=== PATIENT | female | born 1975 | race Caucasian/White ===

== ENCOUNTER 2024-03-16 19:46 | Emergency (ER) | payer MEDICARE, MEDICAID, SELFPAY ==
[2024-03-16] VITALS (8 sets, daily range): BP systolic 159–187; BP diastolic 79–101; PULSE 63–79; RESP 18; TEMP 36.5; O2SAT 92–98; BMI 24.9
--- NOTE | 2024-03-16 20:43 | ED_ITS ---
Discharge Plan Disposition Patient Disposition: Home, Self-Care Prescriptions Prescriptions: New promethazine 25 mg tablet 25 mg PO Q6H PRN (Reason: nausea and vomiting) Qty: 20 0RF levofloxacin 750 mg tablet 750 mg PO DAILY 7 Days Qty: 7 0RF Referrals Follow up/Referrals: Provider,Referral, MD [Referring] - See instructions Activity Restrictions/Add. Instructions Additional Instructions/Restrictions: Please take antibiotics as prescribed for treatment of UTI. Please take Phenergan as needed for nausea and vomiting. Please follow-up with your primary care provider. Please return to the emergency department if you develop any new or worsening symptoms or become concerned for your health. Clinical Impressions Clinical Impression: UTI (urinary tract infection) Qualifiers: Urinary tract infection type: acute pyelonephritis Qualified Code(s): N10 - Acute pyelonephritis Instructions Patient Instructions: DI for Acute Abdominal Pain Print Language Print Language: Monegasque Discharge ED Provider: Dimitri Sims Adult HPI <KHLOE Cain - Last Filed: 03/16/24 22:18> General Chief complaint: Abdominal Pain Stated complaint: abdominal pain Time Seen by Provider: 03/16/24 20:38 Mode of Arrival: EMS Source of Information: Patient Limitations: No Limitations Description of Symptoms (Recalled from ER Triage Doc. by RN): pt reports abdomen pain that is focused in the right lower quad since wednesday. pt reports he has been nauseated and vommiting since then as well. pt denies any fever. History of Present Illness HPI narrative: 48-year-old female presents emergency department via EMS with a lower abdominal pain nausea vomiting and diarrhea with poor p.o. intake since Wednesday. He denies any fever chest pain cough shortness of breath chills, denies any urinary type symptomatology or vaginal type symptomatology to include hematuria hematochezia melena hematemesis or vaginal bleeding. Patient is a current everyday tobacco user, denies any alcohol or drug use, patient is currently undergoing antibiotic therapy with doxycycline for ongoing right diabetic foot infection that is being followed by wound care as outpatient, has been going on some November 2023. The past medical history consistent with type 2 diabetes, hypertension, hyperlipidemia. She has had prior cholecystectomy and laparoscopic procedures performed for ovarian cyst. Initial triage vitals are unremarkable. Onset (ago): day(s) Related Data Previous Rx's ?Medication ?Instructions ?Recorded levofloxacin 750 mg tablet 750 mg PO DAILY 7 days #7 tabs 03/17/24 promethazine 25 mg tablet 25 mg PO Q6H PRN nausea and 03/17/24 vomiting #20 tabs Allergies Allergy/AdvReac Type Severity Reaction Status Date / Time Cephalosporins Allergy Intermediate Hives Verified 03/16/24 21:03 ibuprofen Allergy Intermediate Hives Verified 03/16/24 21:03 lidocaine Allergy Intermediate Rash Verified 03/16/24 21:03 Penicillins Allergy Intermediate Hives Verified 03/16/24 21:03 [facility] <KHLOE Cain - Last Filed: 03/16/24 22:18> [facility] Disclaimer: The information contained in this section may have been updated after the patient was seen, as this information can be updated by other users. Social History (Updated 03/16/24 @ 22:18 by KHLOE Cain) Smoking Status: Current every day smoker alcohol intake: never current occupational status: other Travel in the last 8 weeks: None Have you lived/traveled outside [place] in past 30 days?: No Contact w/someone who lives/traveled outside US past 30 days?: No Exposure to someone with infectious disease in past 14 days?: No Do you have a fever (greater than 100.4 F or 38 C)?: No Have you tested positive for COVID-19: No Exposed to someone with COVID-19 in past 14 days?: No Do you have a sore throat?: No Do you have a cough?: No Do you have any weakness?: No Do you have any diarrhea?: No Are you experiencing any unusual bleeding?: No Do you have any muscle aches/pain?: No Do you have any abdominal pain?: Yes Are you experiencing loss of taste or smell?: Yes <KHLOE Cain - Last Filed: 03/16/24 22:18> ROS Obtained: Yes All systems reviewed & no additional complaints except as documented Physical Exam <KHLOE Cain - Last Filed: 03/16/24 22:18> General General appearance: alert and in no apparent distress Head Head exam: atraumatic and normocephalic Eye Eye exam: Present PERRL and EOMI ENT ENT exam: Present mucous membranes moist Neck Neck exam: Present normal inspection Chest Chest inspection: Present normal inspection and symmetric chest wall rise Respiratory Respiratory exam: Present normal lung sounds bilaterally; Absent respiratory distress, wheezes, stridor or accessory muscle use Cardiovascular Cardiovascular exam: Present regular rate and normal rhythm Abdominal Exam Abdominal exam: Present soft and tenderness Abdominal tenderness: Present RLQ, LLQ and mild Comment: Lower quadrant abdominal tenderness to palpation, there is no guarding, no rebound tenderness palpation Extremities Exam Extremities exam: Present normal inspection and other (Patient has bandaged right foot with prior amputated extremity) Neurological Exam Neurological exam: Present alert and oriented X3 Psychiatric Psychiatric exam: Present normal affect Skin Skin exam: Present warm and dry Medical Decision Making <KHLOE Cani - Last Filed: 03/16/24 22:18> Medical Records Medical records reviewed: Yes I reviewed the patient's medical records. Screening: Per USPSTF and CDC recommendations, given the prevalence of disease in our region, it is our hospital?s policy to screen for HIV and viral Hepatitis for all patients aged 18 and over and those with ongoing risk factors. Festus Inquiry Pt receiving controlled substance: No Festus was queried for this patient: No Vital Signs: 03/16/24 19:46 03/16/24 20:01 Temperature 97.7 F Temperature Source Oral Pulse Rate 70 Pulse Rate [Right] 79 Respiratory Rate 18 Blood Pressure 170/79 H Blood Pressure [Right Arm] 159/101 H Blood Pressure Mean 127 Blood Pressure Mean [Right Arm] 120 02 Sat by Pulse Oximetry 98 97 Oxygen Delivery Method Room Air Lab Data Lab results reviewed: Yes I reviewed the patient's lab results. Lab Results 03/16/24 20:00: WBC 14.4 H, RBC 5.45 H, Hgb 14.6, Hct 43.7, MCV 80.2 L, MCH 26.8 L, MCHC 33.4, RDW 15.0, Plt Count 337, MPV 9.3, Neut % (Auto) 82.0 H, Lymph % (Auto) 13.6, [place] % (Auto) 3.5, Eos % (Auto) 0.1, Baso % (Auto) 0.4, Neut # (Auto) 11.8 H, Lymph # (Auto) 2.0, [place] # (Auto) 0.5, Eos # (Auto) 0.0, Baso # (Auto) 0.1, Sodium 133 L, Potassium 4.1, Chloride 97 L, Carbon Dioxide 30, Anion Gap 10.1, BUN 41 H, Creatinine 0.90, Estimated Creat Clear 92, Estimated GFR 67, Est GFR ( Amer) 82, Glucose 296 H, Lactate 2.4 H, Calcium 9.6, Total Bilirubin 0.8, AST 44 H, ALT 27, Alkaline Phosphatase 91, Total Protein 8.1, Albumin 4.7, Globulin 3.4 H, Albumin/Globulin Ratio 1.4, Lipase 24 03/16/24 20:56: Urine HCG, Qual Negative, Urine Opiates Screen Negative, Urine Methadone Screen Negative, Ur Barbituates Screen Negative, Ur Phencyclidine Scrn Negative, Ur Amphetamines Screen Negative, U Benzodiazepines Scrn Negative, Urine Cocaine Screen Negative, U Marijuana (THC) Screen Positive H 03/16/24 20:57: Urine Color Yellow, Urine Appearance Clear, Urine pH 7.0, Ur Specific [place] 1.020, Urine Protein 2+ A, Urine Glucose (UA) Trace, Urine Ketones 1+, Urine Blood Negative, Urine Nitrate Positive A, Urine Bilirubin 1+ A , Urine Urobilinogen 0.2, Ur Leukocyte Esterase Negative, Urine RBC None, Urine WBC 10-20, Ur Squamous Epith Cells 20-50, Calcium Oxalate Crystal 1+, Urine Bacteria 2+, Hyaline Casts 3-5 03/16/24 20:00 03/16/24 20:00 Orders (Tests/Meds): ED MEDICATIONS Generic Name Dose Route Start Last Admin Trade Name Freq PRN Reason Stop Dose Admin Levofloxacin/Dextrose 750 mg in 150 mls @ 100 mls/hr 03/17/24 00:30 Levofloxacin 750mg/150ml Premix IV 03/27/24 00:29 Q24H [facility] Levofloxacin 750 mg 03/17/24 00:54 Levofloxacin 750 Mg Tablet PO 03/17/24 00:55 ONCE ONE Promethazine HCl 25 mg 03/17/24 00:54 Promethazine 25mg Tablet PO 03/17/24 00:55 ONCE ONE Discontinued Medications Generic Name Dose Route Start Last Admin Trade Name Freq PRN Reason Stop Dose Admin Iopamidol 75 ml 03/16/24 22:38 03/16/24 22:39 Iopamidol-370 (76%);100ml Bottle IV 03/16/24 22:39 75 ml ONCE ONE Administration Morphine Sulfate 2 mg 03/16/24 20:46 03/16/24 21:16 Morphine 4mg/Ml Syringe IV 03/16/24 20:47 2 mg ONCE ONE Administration Ondansetron HCl 4 mg 03/16/24 20:46 03/16/24 21:17 Ondansetron 4mg/2ml Vial IV 03/16/24 20:47 4 mg ONCE ONE Administration Promethazine HCl 25 mg 03/17/24 00:22 03/17/24 00:58 Promethazine Hcl 25mg/Ml 1ml Vial IV 03/17/24 00:23 Not Given ONCE ONE Sodium Chloride 10 ml 03/16/24 22:38 03/16/24 22:39 Sodium Chloride 0.9% 10ml Syr (Rad Only) IV 03/16/24 22:39 10 ml ONCE ONE Administration Sodium Chloride 25 ml 03/17/24 00:22 03/17/24 00:26 Sodium Chloride 0.9% 25ml Bag IV 03/17/24 00:23 25 ml ONCE ONE Administration ORDERS Category Date Time Status CT abdomen pelvis w con Stat Cat Scan 03/16/24 20:43 Completed XR chest portable Stat Exams 03/16/24 20:45 Completed Complete Blood Count Auto Diff Stat Lab 03/16/24 20:00 Completed Comprehensive Metabolic Panel Stat Lab 03/16/24 20:00 Completed Drug Screen,Urine Stat Lab 03/16/24 20:56 Completed Lactic Acid Follow Up (RFLX 1) Stat Lab 03/17/24 00:50 Ordered Lactic Acid Stat Lab 03/16/24 20:00 Completed Lipase Stat Lab 03/16/24 20:00 Completed Urinalysis and Microscopic Stat Lab 03/16/24 20:57 Completed Urine , HCG Qual. Stat Lab 03/16/24 20:56 Completed Urine Culture Stat Micro 03/16/24 20:57 Received Medical Decision Narrative: 48-year-old female presents to the emergency department with abdominal pain nausea vomiting diarrhea for several days, differential diagnosis could but limited to colitis ileitis, gastritis, GERD, electrolyte disturbance, pancreatitis, cholecystitis, cholelithiasis, choledocholithiasis, UTI, ureterolithiasis, nephrolithiasis, gastroenteritis. Obtain basic laboratory studies lipase lactate chest x-ray, urine hCG, CT abdomen pelvis with contrast, will give 4 mg IV Zofran and 2 mg IV morphine for pain, urinalysis chest x-ray. CBC is notable for mild leukocytosis of 14.4, hemoconcentrated and decreased MCV at 80.2 which I do think is chronic/and corresponding with the patient's ongoing tobacco abuse. CMP is notable for minimal hyponatremia at 133, BUN is elevated at 41 lipase within normal limits, AST is minimally elevated at 44. UDS is positive for marijuana, otherwise negative. urine hCG is negative I discussed with patient case with the attending physician Dr. Sims at shift change she will be assuming admitted patient care/workup, pending urinalysis, laboratory studies and imaging studies. <Dimitri Sims MD - Last Filed: 03/17/24 01:03> Vital Signs: 03/16/24 19:46 03/16/24 20:01 Temperature 97.7 F Temperature Source Oral Pulse Rate 70 Pulse Rate [Right] 79 Respiratory Rate 18 Blood Pressure 170/79 H Blood Pressure [Right Arm] 159/101 H Blood Pressure Mean 127 Blood Pressure Mean [Right Arm] 120 02 Sat by Pulse Oximetry 98 97 Oxygen Delivery Method Room Air Lab Data Lab Results 03/16/24 20:00: WBC 14.4 H, RBC 5.45 H, Hgb 14.6, Hct 43.7, MCV 80.2 L, MCH 26.8 L, MCHC 33.4, RDW 15.0, Plt Count 337, MPV 9.3, Neut % (Auto) 82.0 H, Lymph % (Auto) 13.6, [place] % (Auto) 3.5, Eos % (Auto) 0.1, Baso % (Auto) 0.4, Neut # (Auto) 11.8 H, Lymph # (Auto) 2.0, [place] # (Auto) 0.5, Eos # (Auto) 0.0, Baso # (Auto) 0.1, Sodium 133 L, Potassium 4.1, Chloride 97 L, Carbon Dioxide 30, Anion Gap 10.1, BUN 41 H, Creatinine 0.90, Estimated Creat Clear 92, Estimated GFR 67, Est GFR ( Amer) 82, Glucose 296 H, Lactate 2.4 H, Calcium 9.6, Total Bilirubin 0.8, AST 44 H, ALT 27, Alkaline Phosphatase 91, Total Protein 8.1, Albumin 4.7, Globulin 3.4 H, Albumin/Globulin Ratio 1.4, Lipase 24 03/16/24 20:56: Urine HCG, Qual Negative, Urine Opiates Screen Negative, Urine Methadone Screen Negative, Ur Barbituates Screen Negative, Ur Phencyclidine Scrn Negative, Ur Amphetamines Screen Negative, U Benzodiazepines Scrn Negative, Urine Cocaine Screen Negative, U Marijuana (THC) Screen Positive H 03/16/24 20:57: Urine Color Yellow, Urine Appearance Clear, Urine pH 7.0, Ur Specific [place] 1.020, Urine Protein 2+ A, Urine Glucose (UA) Trace, Urine Ketones 1+, Urine Blood Negative, Urine Nitrate Positive A, Urine Bilirubin 1+ A , Urine Urobilinogen 0.2, Ur Leukocyte Esterase Negative, Urine RBC None, Urine WBC 10-20, Ur Squamous Epith Cells 20-50, Calcium Oxalate Crystal 1+, Urine Bacteria 2+, Hyaline Casts 3-5 Orders (Tests/Meds): ED MEDICATIONS Generic Name Dose Route Start Last Admin Trade Name Freq PRN Reason Stop Dose Admin Levofloxacin/Dextrose 750 mg in 150 mls @ 100 mls/hr 03/17/24 00:30 Levofloxacin 750mg/150ml Premix IV 03/27/24 00:29 Q24H [facility] Levofloxacin 750 mg 03/17/24 00:54 Levofloxacin 750 Mg Tablet PO 03/17/24 00:55 ONCE ONE Promethazine HCl 25 mg 03/17/24 00:54 Promethazine 25mg Tablet PO 03/17/24 00:55 ONCE ONE Discontinued Medications Generic Name Dose Route Start Last Admin Trade Name Freq PRN Reason Stop Dose Admin Iopamidol 75 ml 03/16/24 22:38 03/16/24 22:39 Iopamidol-370 (76%);100ml Bottle IV 03/16/24 22:39 75 ml ONCE ONE Administration Morphine Sulfate 2 mg 03/16/24 20:46 03/16/24 21:16 Morphine 4mg/Ml Syringe IV 03/16/24 20:47 2 mg ONCE ONE Administration Ondansetron HCl 4 mg 03/16/24 20:46 03/16/24 21:17 Ondansetron 4mg/2ml Vial IV 03/16/24 20:47 4 mg ONCE ONE Administration Promethazine HCl 25 mg 03/17/24 00:22 03/17/24 00:58 Promethazine Hcl 25mg/Ml 1ml Vial IV 03/17/24 00:23 Not Given ONCE ONE Sodium Chloride 10 ml 03/16/24 22:38 03/16/24 22:39 Sodium Chloride 0.9% 10ml Syr (Rad Only) IV 03/16/24 22:39 10 ml ONCE ONE Administration Sodium Chloride 25 ml 03/17/24 00:22 03/17/24 00:26 Sodium Chloride 0.9% 25ml Bag IV 03/17/24 00:23 25 ml ONCE ONE Administration ORDERS Category Date Time Status CT abdomen pelvis w con Stat Cat Scan 03/16/24 20:43 Completed XR chest portable Stat Exams 03/16/24 20:45 Completed Complete Blood Count Auto Diff Stat Lab 03/16/24 20:00 Completed Comprehensive Metabolic Panel Stat Lab 03/16/24 20:00 Completed Drug Screen,Urine Stat Lab 03/16/24 20:56 Completed Lactic Acid Follow Up (RFLX 1) Stat Lab 03/17/24 00:50 Ordered Lactic Acid Stat Lab 03/16/24 20:00 Completed Lipase Stat Lab 03/16/24 20:00 Completed Urinalysis and Microscopic Stat Lab 03/16/24 20:57 Completed Urine , HCG Qual. Stat Lab 03/16/24 20:56 Completed Urine Culture Stat Micro 03/16/24 20:57 Received Medical Decision Narrative: 48-year-old female presents to the emergency department with abdominal pain nausea vomiting diarrhea for several days, differential diagnosis could but limited to colitis ileitis, gastritis, GERD, electrolyte disturbance, pancreatitis, cholecystitis, cholelithiasis, choledocholithiasis, UTI, ureterolithiasis, nephrolithiasis, gastroenteritis. Obtain basic laboratory studies lipase lactate chest x-ray, urine hCG, CT abdomen pelvis with contrast, will give 4 mg IV Zofran and 2 mg IV morphine for pain, urinalysis chest x-ray. CBC is notable for mild leukocytosis of 14.4, hemoconcentrated and decreased MCV at 80.2 which I do think is chronic/and corresponding with the patient's ongoing tobacco abuse. CMP is notable for minimal hyponatremia at 133, BUN is elevated at 41 lipase within normal limits, AST is minimally elevated at 44. UDS is positive for marijuana, otherwise negative. urine hCG is negative I discussed with patient case with the attending physician Dr. Sims at shift change she will be assuming admitted patient care/workup, pending urinalysis, laboratory studies and imaging studies. I was consulted by the JB, and we discussed the complexity of the problems being addressed.I approved the treatment and management plan for this patient?s care in the Emergency Department, thus performing a substantive portion of the medical decision making.Signed, Dimitri Sims MD Critical Care <KHLOE Cain - Last Filed: 03/16/24 22:18> Critical Care Time Critical Care Time: No
--- NOTE | 2024-03-16 20:43 | CT_ITS ---
PROCEDURE INFORMATION: Exam: CT Abdomen And Pelvis With Contrast Exam date and time: 03/16/2024 10:27 PM Age: 48 years old Clinical indication: Abdominal pain; Additional info: Abdominal pain, nausea and vomiting TECHNIQUE: Imaging protocol: Computed tomography of the abdomen and pelvis with contrast. Total images: 328 Radiation optimization: All CT scans at this facility use at least one of these dose optimization techniques: automated exposure control; mA and/or kV adjustment per patient size (includes targeted exams where dose is matched to clinical indication); or iterative reconstruction. Contrast material: ISOVUE; Contrast volume: 75 ml; Contrast route: IV; COMPARISON: No relevant prior studies available. FINDINGS: Lungs: Lung bases are clear. Heart: Normal heart size. Coronary arteries: Coronary artery calcifications. Liver: Mild hepatic steatosis versus phase of contrast. Focal fatty infiltration near the falciform ligament. Otherwise, unremarkable liver. Gallbladder and biliary ducts: Status post cholecystectomy. Mild biliary ductal dilatation. Pancreas: Normal. No ductal dilation. Spleen: Normal. No splenomegaly. Adrenal glands: Normal. No mass. Kidneys and ureters: No hydronephrosis, nephrolithiasis, or renal mass. Stomach and bowel: Unremarkable stomach and duodenum. No ileus or bowel obstruction. Limited bowel wall assessment. Unremarkable small bowel and terminal ileum. Unremarkable colon and rectum. Appendix: Nonvisualized appendix. No secondary signs of appendicitis. Intraperitoneal space: Unremarkable. No free air. No significant fluid collection. Vasculature: Mild atherosclerotic vascular disease. Nonaneurysmal abdominal aorta. Major abdominal vessels enhance appropriately. Lymph nodes: Unremarkable. No enlarged lymph nodes. Urinary bladder: Unremarkable as visualized. Reproductive: Atrophic uterus and ovaries. No adnexal mass. Bones/joints: Moderate degenerative changes of the thoracolumbar spine including DISH in lower thoracic levels. Mild lumbar levocurvature. Mild degenerative changes bilateral hips and SI joints. Soft tissues: Unremarkable. Other findings: Attenuation artifact from arm positioning compromises detail. IMPRESSION: 1. No acute intra-abdominal or pelvic process. 2. Chronic and incidental findings.
--- NOTE | 2024-03-16 20:45 | XR_ITS ---
PROCEDURE INFORMATION: Exam: XR Chest Exam date and time: 03/16/2024 10:28 PM Age: 48 years old Clinical indication: Shortness of breath; Additional info: SOA TECHNIQUE: Imaging protocol: Radiologic exam of the chest. Views: 1 view. Total images: 1 COMPARISON: CT ABDOMEN PELVIS W CON 03/16/2024 10:27 PM FINDINGS: Lungs: Small focal areas of airspace opacity left upper lobe likely reflecting acute pneumonitis or distal small airway inflammation. Lungs are otherwise clear. Component of nonspecific mild hyperinflation. Pleural spaces: Unremarkable. No pleural effusion. No pneumothorax. Heart/Mediastinum: Unremarkable. No cardiomegaly. No mediastinal widening or hilar enlargement. Bones/joints: Partially visualized mild degenerative changes of the thoracic spine. Soft tissues: Approximate 2 cm fine linear metallic foreign body superimposed on the lower thoracic spine. IMPRESSION: 1. Small patchy left upper lobe infiltrates. 2. Nonspecific hyperinflation 3. 2 cm fine linear metallic foreign body superimposed on the lower thoracic spine.
[2024-03-16 21:11] LABS: Chloride 97 mmol/L (98-107)
[2024-03-16 21:12] LABS: Albumin Level 4.7 g/dl (3.5-5.0); Potassium 4.1 mmoL/L (3.5-5.1); Sodium 133 mmol/L (136-145); White Blood Count 14.4 K/mm3 (4.8-10.8)
[2024-03-16 21:13] LABS: Basophils % 0.4 % (0.1-2.0); Eosinophils % 0.1 % (0.1-12.0); Hematocrit 43.7 % (37.0-47.0); Hemoglobin 14.6 g/dL (12.2-16.2); Lymphocytes % 13.6 % (10-50); Mean Corpuscular HGB Conc 33.4 g/dL (31.8-35.4); Mean Corpuscular Hemoglobin 26.8 pg (27.0-31.2); Mean Corpuscular Volume 80.2 fl (81-99); Mean Platelet Volume 9.3 fl (7.4-10.4); Monocytes # 0.5 K/mm3 (0.1-1.0); Monocytes % 3.5 % (1.7-9.3); Neutrophils # 11.8 K/mm3 (1.8-7.8); Platelet Count 337 K/mm3 (142-424); Red Blood Count 5.45 M/mm3 (4.20-5.40)
[2024-03-16 21:14] LABS: Alanine Aminotransferase 27 U/L (12-78); Aspartate Amino Transferase 44 U/L (14-36); Basophils # 0.1 K/mm3 (0-0.2); Blood Urea Nitrogen 41 mg/dl (7-17); Creatinine Clearance Estimated 92 mL/min (50-200); Estimated Glomerular Filt Rate 67 ml/min (>60); GFR (African American) 82 ML/MIN (>60)
[2024-03-16 21:15] LABS: Albumin/Globulin Ratio 1.4 (1.1-1.8); Alkaline Phosphatase 91 U/L (38-126); Anion Gap 10.1 mEq/L (5-15); Bilirubin,Total 0.8 mg/dl (0.2-1.3); Calcium 9.6 mg/dl (8.4-10.2); Carbon Dioxide 30 mmol/L (22.0-30.0); Globulin 3.4 g/dL (1.3-3.2); Glucose 296 mg/dl (74-100); Lipase 24 U/L (23-300); Total Protein,Serum 8.1 g/dl (6.3-8.2)
[2024-03-16] MEDS: MORPHINE 4MG/ML SYRINGE 2 MG IV (21:16)
[2024-03-16] MEDS: ONDANSETRON 4MG/2ML VIAL 4 MG IV (21:17)
[2024-03-16 21:35] LABS: Amphetamine/Metha Screen,Urine Negative ng/ml (<1000)
[2024-03-16 21:36] LABS: Barbiturates Screen,Urine Negative ng/ml (<200); Benzodiazepines Screen,Urine Negative ng/ml (<200)
[2024-03-16 21:37] LABS: Cannabinoid Screen,Urine Positive ng/ml (<50)
[2024-03-16 21:38] LABS: Cocaine Screen,Urine Negative ng/ml (<300); Methadone Screen,Urine Negative ng/ml (<300)
[2024-03-16 21:39] LABS: Opiate Screen,Urine Negative ng/ml (<300)
[2024-03-16 21:40] LABS: Phencyclidine Screen,Urine Negative ng/ml (<25)
[2024-03-16 22:14] LABS: Microscopic, Urine URINE MICROSCOPIC (MICROSCOPIC)
[2024-03-16 22:15] LABS: Urine Pregnancy, HCG Qual. Negative (Negative)
[2024-03-16 22:36] LABS: Appearance,Urine CLEAR (Clear); Blood, Urine Negative (Negative); Color,Urine YELLOW (Yellow); Glucose,Urine (UA) TRACE (Negative); Ketones,Urine 1+ (Negative); Leukocyte Esterase,Urine Negative (Negative); Nitrate,Urine POSITIVE (Negative); Protein,Urine 2+ (Negative); Urobilinogen,Urine 0.2 EU/dl (0.2)
[2024-03-16] MEDS: IOPAMIDOL-370 (76%);100ML BOTTLE 75 ML IV (22:39)
[2024-03-16] MEDS: SODIUM CHLORIDE 0.9% 10ML SYR (RAD ONLY) 10 ML IV (22:39)
[2024-03-16 23:18] LABS: Bilirubin,Urine 1+ (Negative)
[2024-03-16 23:19] LABS: Bacteria,Urine 2+ /lpf; Calcium Oxalate Crystals,Urine 1+ /lpf; Squamous Epithelial Cell,Urine 20-50 #/hpf (0-5)
[2024-03-16 23:53] LABS: Lactic Acid 2.4 mmol/L (0.7-2.1)
[2024-03-17] VITALS: BP 176/74; PULSE 66; O2SAT 96
[2024-03-17] MEDS: SODIUM CHLORIDE 0.9% 25ML BAG 25 ML IV (00:26)
[2024-03-17 00:30] VITALS: BP 176/85; PULSE 66; O2SAT 93
[2024-03-17 00:50] LABS: Reflex Lactic Add Lactic Reflex
--- NOTE | 2024-03-17 00:59 | PC.NURSE ---
As per the MAR attempted to administer IV promethazine, IV sight had went bad and would not flush. IV line was pulled and noticeable kink in the IV catheter from patient bending her arm. Attempted to start another IV in pts forearm on the R side and IV blew, Destiny Huerta attempted 2 IVs with no success.
[2024-03-17 01:01] VITALS: BP 107/59; PULSE 95; O2SAT 97
[2024-03-17] MEDS: PROMETHAZINE 25MG TABLET 25 MG PO (01:03)
[2024-03-17] MEDS: levoFLOXacin 750 MG TABLET PO (01:04)
--- NOTE | 2024-03-17 01:31 | PC.NURSE ---
pt called her spouse and he states there is nobody available at this time to come pick her up from the hospital. Patient is comfortable in bed, provided warm blankets. Spouse states he will keep trying to find someone to come pick patient up and will keep us updated.
--- NOTE | 2024-03-17 07:37 | PC.NURSE ---
PT WAS PROVIDED A BREAKFAST TRAY. i ASKED HER ABOUT A RIDE HOME AND SHE STATES HER DOES NOT HAVE A LICENSE NOR A RUNNING VEHICLE. I CALLED CARE MANAGEMENT AND S/W JOSEPH CHECKIN ON A RIDE HOME ON THE [employer] [address] PT HAS MEDICAID/MEDICARE. JOSEPH WILL CHECK ON TRANSPORT.
[2024-03-17 07:41] VITALS: BP 130/65; PULSE 78; RESP 16; TEMP 36.7; O2SAT 97
--- NOTE | 2024-03-17 08:07 | SW/DCPLANNER ---
Phoned [facility] to schedule patient a ride. Dispatch person stated that they didnt know time of pickup but will call when they find a person to pick her up. Elly Skinner
--- NOTE | 2024-03-17 08:10 | PC.NURSE ---
Care Management was able to accept pt for ride, will notify ER with machine operator picker time as soon as they are made aware.
== END 2024-03-17 08:25 | disposition home or self-care (01) ==
PROVIDERS: Physician Assistant; Emergency Provider Emergency Medicine; PCP Family Medicine
DX: N39.0 Urinary tract infection, site not specified (principal); R10.31 Right lower quadrant pain; R11.2 Nausea with vomiting, unspecified; R19.7 Diarrhea, unspecified
CPT/HCPCS: 71045; 74177; 80053; 80307; 81001; 81025; 83605; 83690; 85025; 87086; 96374; 96375; 99285; J1956; J2270; J2405; J2550; Q9967